=== PATIENT | female | born 1995 | race Two or more races ===

== ENCOUNTER 2024-12-10 14:29 | Outpatient (AMB) | payer MEDICAID, SELFPAY ==
--- NOTE | 2024-12-10 14:35 | AMB.OBINITIA ---
Vital Signs 12/10/24 14:36 Height 1.57 m Height Method Stated Weight 94.971 kg Weight Measurement Method Standing Scale BMI 38.2 BP 113/74 Blood Pressure Source Automatic Cuff Blood Pressure Location Right Upper Arm Position Sitting Respiration 18 Pulse 98 Pulse Source Monitor Temp 97.3 F Temp Source Temporal Artery Scan Pulse Oximetry (%) 98 Oxygen Delivery Method Room Air Allergies/Home Meds Allergies & Medications Allergies NKA* Allergy (Uncoded 12/10/24 14:40) Medication Reconciliation vit,calcium 128-iron fum 28 mg iron-folic acid 800 mcg tablet 1 tab PO QDAY 08/07/21 [History Confirmed 12/10/24] Intake Visit Data Collection New Patient or Established: Established Patient (seen at [facility] within 3 years) Reason for Visit:: OBI Seen by Clinical Staff ONLY (RN/MA): No Underwriting Service Representative Required: No Do You Feel Safe at Home: Yes Authorities Contacted: N/A PCP or OBGYN visit in last 3 months: Yes Hx Now: Yes Are you currently on any form of Control: No Pain Present Currently: No Pain Scale Used: Gibbs-Bey/Numerical Pain scale:: 0 Smoking Status Smoking Status: Never smoker Immunizations Flu Vaccine in the Last 12 Months: No Flu Vaccine Exclusion Criteria: No Exclusion Criteria Questionnaires Covid-19 Vaccine Questionnaire Has patient been vacinated for Covid-19 Have you been vacinated for Covid-19: No PHQ-9 PHQ-2 Over the last 2 weeks, how often have you been bothered by any of the following problems? 1. Little interest or pleasure in doing things: not at all 2. Feeling down, depressed, or hopeless: not at all Total score: 0 PHQ-9 3. Trouble falling or staying asleep, or sleeping too much: Not at all 4. Feeling tired or having little energy: Not at all 5. Poor appetite or overeating: Not at all 6. Feeling bad about yourself - or that you are a failure or have let yourself or your family down: Not at all 7. Trouble concentrating on things, such as reading the newspaper or watching television: Not at all 8. Moving or speaking so slowly that other people could have noticed? - Or the opposite - being so fidgety or restless that you have been moving around a lot more than usual: not at all 9. Thoughts that you would be better off or of hurting yourself in some way: Not at all Total score: 0 If you checked off any problems, how difficult have these problems made it for you to do your work, take care of things at home, or get along with other people?: not difficult at all Source: Developed by Drs. Levi Moran, Mitra Cardenas, Gerson Mcghee and colleagues, with an educational tresa from [employer]. Depression screen completed yes Social History Living Situation History Marital Status: Lives With: Family Housing: House Tobacco History Smoking Status: Never smoker Second Hand Smoke Exposure: No Alcohol History Alcohol Intake: Never Domestic Abuse History Do You Feel Safe at Home: Yes OB Initial Visit OB Flowsheet OB Flowsheet Initial Weight: Not Recorded Date <del>?</del> EGA Weight BP Alb Glu CTX Pres Fundal ht FHR Mov Dilation Station Effacement Hx Notes Visit Note 12/10/24 <del>?</del> 23w 2d 94.971 kg 113/74 24 142 active Menstrual History Menstrual reliability: unknown Flow: normal Menstrual regularity: regular Monthly: Yes Age at menarche: 14 On control pills at conception: No OB History : 2 Para: 1 # of Living Children: 1 Delivery History 1st : Child's name: GUI MEDINA date: 08/10/21 sex: male Gestational age at delivery (weeks): 39 Delivery type: weight (lbs): 4082.331 g History of depression before or after : No Infection History & Risk Evaluation History of STDs: none Patient or partner has history of Genital Herpes: No Genetic Screening & History Genetic Screening/Teratology Counseling - Includes patient, baby's father, or anyone in either family with: 1. Patient's age 35 years or older as of estimated date of delivery: No 2. Thalassemia (Swedish, Filipino, Mediterranean, or Background); MCV less than 80: No 3. Neural Tube Defect (Meningomyelocele, Spina Bifida, or Anencephaly): No 4. Congenital Heart Defect: No 5. Down Syndrome: No 6. Mnig-Sachs (Ashkenazi Scientology, C[place]un, [place]): No 7. Richy Disease (Ashkenazi Scientology): No 8. Familial Dysautonomia (Ashkenazi Scientology): No 9. Sickle Cell Disease or Trait (): No 10. Hemophilia or other blood disorders: No 11. Muscular Dystrophy: No 12. Cystic Fibrosis: No 13. Micaela's Chorea: No 14. Mental Retardation/Autism: No 15. Other inherited genetic or chromosomal disorder: No 16. Maternal Metabolic Disorder (EG,TYPE 1 Diabetes, PKU): No 17. Patient or baby's father had a child with defects not listed above: No 18. Recurrent loss or a stillbirth: No 19. Medications (including supplements, vitamins, herbs or otc drugs)/illicit/recreational drugs/alcohol since last menstrual period: No 20. Any other: No Infection History 1. Live with someone with TB or exposed to TB: No Other (see comments) Source: [employer] Office Procedures OBC Clinic LOC & Office Proc's Nursing/Assessment Patient Status: Established Patient OB Clinic Nursing Assessment: Medication Reconciliation, Update PMH in EMR and Vital Signs OB Clinic Coordination of Care: Complex Care and Chronic Disease 1-5, Education Complex Pt/Fam, Consent,records obtained, informed consent, Lab and Imaging orders, Results/Orders obtained and Staff clarify orders Special Needs: Heart tones Established Patient Charge Established Patient Point Assignment: 140 Established Patient Point Charge: EP Level 4 (120-155) Assessment & Plan Diagnosis / Problem List (1) : Status: Acute Qualifiers: Weeks of gestation: 24 weeks Qualified Code(s): Z3A.24 - 24 weeks gestation of (2) Previous section: Status: Acute Plan 29 years old with previous c section and also 24 weeks and with borderline cervical length has MFM follow up for cervical length in 1 week plan one hour GTT, RPR, CBC request ob labs from [facility] [address] and also request anatomy scan reports / done on 10/12/[address] Bartholomew Also Us done MFM on 11/11/2024 is c/w 21.5 weeks and cervical length of 2.53 cm
[2024-12-10 14:36] VITALS: BP 113/74; PULSE 98; RESP 18; TEMP 36.3; O2SAT 98; BMI 38.2
== END 2024-12-10 15:32 | disposition home or self-care (01) ==
LOC: HODSOBC 14:29
PROVIDERS: Supervising Provider Obstetrics & Gynecology; Visit Provider Obstetrics & Gynecology
DX: O09.292 Supervision of pregnancy with other poor reproductive or obstetric history, second trimester (principal); O34.219 Maternal care for unspecified type scar from previous cesarean delivery; Z3A.24 24 weeks gestation of pregnancy
CPT/HCPCS: 99214; G0463

== ENCOUNTER 2025-01-10 15:20 | Outpatient (AMB) | payer MEDICAID, SELFPAY ==
[2025-01-10 15:32] VITALS: BP 123/77; PULSE 99; RESP 18; TEMP 36.8; O2SAT 97; BMI 39.9
--- NOTE | 2025-01-10 15:32 | OBCLNT_ITS ---
Vital Signs 01/10/25 15:32 Height 1.57 m Height Method Stated Weight 98.543 kg Weight Measurement Method Standing Scale BMI 39.9 BP 123/77 Blood Pressure Source Automatic Cuff Blood Pressure Location Left Upper Arm Position Sitting Respiration 18 Pulse 99 Pulse Source Monitor Temp 98.2 F Temp Source Oral Pulse Oximetry (%) 97 Oxygen Delivery Method Room Air Allergies/Home Meds Allergies & Medications Allergies NKA* Allergy (Uncoded 01/10/25 15:33) Medication Reconciliation vit,calcium 128-iron fum 28 mg iron-folic acid 800 mcg tablet 1 tab PO QDAY 08/07/21 [History Confirmed 01/10/25] Immunizations Immunizations Flu Vaccine in the Last 12 Months: No Flu Vaccine Exclusion Criteria: No Exclusion Criteria Care OB Visit Log OB Flowsheet Initial Weight: Not Recorded Date -?-?-?-?-?-?-?-?-?-?-?-?- EGA Weight BP Alb Glu CTX Pres Fundal ht FHR Mov Dilation Station Effacement Hx Notes Visit Note 12/10/24 -?-?-?-?-?-?-?-?-?-?-?-?- 23w 2d 94.971 kg 113/74 24 142 active 01/10/25 -?-?-?-?-?-?-?-?-?-?-?-?- 27w 5d 98.543 kg 123/77 occasional 28 160 active Patient reports good movement no contractions she does feel occasional pressure. No vaginal bleeding She has a follow -up with the maternal- medicine doctors [facility] Calculator Estimated Delivery Date Method Current WG Current Estimate 04/06/25 Ultrasound #1 27w 5d Other Estimates 03/28/25 LMP (Certain) 29w 0d 04/07/25 Ultrasound #2 27w 4d Expected Delivery Route/Plan -0-0-1 Previous of a 9 pound 8 ounce baby for macrosomia. For repeat . Declines tubal ligation. Any lingering Specific Issue/Plans labs: NIPT negative\SMA negative\CF negative\AFP negative\hemoglobin A1c 5.3\1 hour glucose elevated at 151. 3-hour glucose ordered. Notes Visit Date: 01/10/25 Last Updated by: Demetria Galloway (OB Clinic)MD Patient works in the [employer] and lifts and bends all day. She states she has to come home from work and rest for at least an hour secondary to cramping. The maternal- medicine specialist are following her for a short cervix and she is on progesterone vaginally. The plan will be to take the patient off work on disability at this time. A note was given and she did drop disability papers off. She failed her 1 hour at 151 and we will do a 3-hour glucose and this was ordered today. Visit Date: 12/10/24 Last Updated by: Natividad Chávez MD 29 years old at 24.4 weeks based on LMP Previous c section/ was ? GBS positive last needs labs report from [facility] / denies any problems this she had an anatomy scan and needs that report too/ was told she has a short cervix follow up in 4 weeks order i hour GTT and RPR and CBC Office Procedures OBC Clinic LOC & Office Proc's Nursing/Assessment Patient Status: Established Patient OB Clinic Nursing Assessment: Medication Reconciliation, Update PMH in EMR and Vital Signs OB Clinic Coordination of Care: Consent,records obtained, informed consent, Education Simp Pt/Fam, Lab and Imaging orders, Results/Orders obtained and Staff clarify orders Special Needs: Heart tones Established Patient Charge Established Patient Point Assignment: 110 Established Patient Point Charge: EP Level 3 (80-115) Assessment & Plan Diagnosis / Problem List (1) Previous section: Status: Acute Assessment and Plan: For repeat at 39 weeks. Patient works in the [employer] and lifts and bends. Off work 01/10/2025. On modified bedrest and pelvic rest. Following her for a short cervix with the maternal- medicine specialist. Continue vaginal progesterone. (2) Obesity (BMI 30-39.9): Status: Acute Assessment and Plan: Discussed weight gain and exercise. Additional Plan Follow Up: 4 Weeks
== END 2025-01-10 16:19 | disposition home or self-care (01) ==
PROVIDERS: Supervising Provider Obstetrics & Gynecology; Visit Provider Obstetrics & Gynecology
DX: O09.292 Supervision of pregnancy with other poor reproductive or obstetric history, second trimester (principal); O34.219 Maternal care for unspecified type scar from previous cesarean delivery; O09.892 Supervision of other high risk pregnancies, second trimester; Z3A.27 27 weeks gestation of pregnancy; O99.212 Obesity complicating pregnancy, second trimester
CPT/HCPCS: 99213; G0463

== ENCOUNTER 2025-02-09 14:53 | Outpatient (AMB) | payer MEDICAID, SELFPAY ==
--- NOTE | 2025-02-09 15:13 | OBCLNT_ITS ---
Vital Signs 02/09/25 15:14 02/09/25 15:37 Height 1.57 m Height Method Stated Weight 94.461 kg Weight Measurement Method Standing Scale BMI 38.3 BP 115/76 115/76 Blood Pressure Source Automatic Cuff Blood Pressure Location Left Upper Arm Position Sitting Respiration 18 18 Pulse 102 H 20 L Pulse Source Monitor Temp 97.8 F 97.8 F Temp Source Oral Pulse Oximetry (%) 97 97 Oxygen Delivery Method Room Air Allergies/Home Meds Allergies & Medications Allergies NKA* Allergy (Uncoded 02/09/25 15:14) Medication Reconciliation vit,calcium 128-iron fum 28 mg iron-folic acid 800 mcg tablet 1 tab PO QDAY 08/07/21 [History Confirmed 02/09/25] blood sugar diagnostic (Blood Glucose Test strips) #10 ea 02/09/25 [Rx] blood-glucose meter #1 ea 02/09/25 [Rx] lancets #100 ea 02/09/25 [Rx] Immunizations Immunizations Flu Vaccine in the Last 12 Months: No Flu Vaccine Exclusion Criteria: Refused by Patient Care OB Visit Log OB Flowsheet Initial Weight: Not Recorded Date -?-?-?-?-?-?-?-?-?-?-?-?- EGA Weight BP Alb Glu CTX Pres Fundal ht FHR Mov Dilation Station Effacement Hx Notes Visit Note 12/10/24 -?-?-?-?-?-?-?-?-?-?-?-?- 23w 2d 94.971 kg 113/74 24 142 active 01/10/25 -?-?-?-?-?-?-?-?-?-?-?-?- 27w 5d 98.543 kg 123/77 occasional 28 160 active Patient reports good movement no contractions she does feel occasional pressure. No vaginal bleeding She has a follow -up with the maternal- medicine doctors 02/09/25 -?-?-?-?-?-?-?-?-?-?-?-?- 32w 0d 94.461 kg 115/76 115/76 occasional 33 155 active [employer] Calculator Estimated Delivery Date Method Current WG Current Estimate 04/06/25 Ultrasound #1 32w 5d Other Estimates 03/28/25 LMP (Certain) 34w 0d 04/07/25 Ultrasound #2 32w 4d Expected Delivery Route/Plan -0-0-1 Previous of a 9 pound 8 ounce baby for macrosomia. For repeat . Declines tubal ligation. Any lingering Specific Issue/Plans labs: NIPT negative\SMA negative\CF negative\AFP negative\hemoglobin A1 c 5.3\1 hour glucose elevated at 151. 3-hour glucose ordered. Notes Visit Date: 02/09/25 Last Updated by: Natividad Chávez MD / previous c section/ Last baby > 9 lbs and one hour GTT cw GDM 1 hour is 204 and fasting is 102 / done 01/18/2025 / Plan diet / glucose monitoring and follow up in 2 weeks Visit Date: 01/10/25 Last Updated by: Demetria Galloway (OB Clinic)MD Patient works in the [employer] and lifts and bends all day. She states she has to come home from work and rest for at least an hour secondary to cramping. The maternal- medicine specialist are following her for a short cervix and she is on progesterone vaginally. The plan will be to take the patient off work on disability at this time. A note was given and she did drop disability papers off. She failed her 1 hour at 151 and we will do a 3-hour glucose and this was ordered today. Visit Date: 12/10/24 Last Updated by: Natividad Chávez MD 29 years old at 24.4 weeks based on LMP Previous c section/ was ? GBS positive last needs labs report from [facility] / denies any problems this she had an anatomy scan and needs that report too/ was told she has a short cervix follow up in 4 weeks order i hour GTT and RPR and CBC Office Procedures OBC Clinic LOC & Office Proc's Nursing/Assessment Patient Status: Established Patient OB Clinic Nursing Assessment: Medication Reconciliation, Update PMH in EMR and Vital Signs OB Clinic Coordination of Care: Complex Care and Chronic Disease 1-5, Consent,records obtained, informed consent, Education Simp Pt/Fam, 1 Ins Authorization, Lab and Imaging orders, Results/Orders obtained and Staff clarify orders Special Needs: Heart tones Established Patient Charge Established Patient Point Assignment: 150 Established Patient Point Charge: EP Level 4 (120-155) Assessment & Plan Diagnosis / Problem List (1) GDM, class A1: Status: Acute (2) Obesity (BMI 30-39.9): Status: Acute (3) Previous section: Status: Acute (4) : Status: Acute Qualifiers: Weeks of gestation: 24 weeks Qualified Code(s): Z3A.24 - 24 weeks gestation of Assessment and Plan: 32 weeks Additional Plan / previous c section/ Last baby > 9 lbs and one hour GTT cw GDM 1 hour is 204 and fasting is 102 / done 01/18/2025 / Plan diet / glucose monitoring and follow up in 2 weeks Follow Up: 2 Weeks
[2025-02-09 15:14] VITALS: BP 115/76; PULSE 102; RESP 18; TEMP 36.6; O2SAT 97; BMI 38.3
--- NOTE | 2025-02-09 15:32 | OBCLNT_ITS ---
Vital Signs 02/09/25 15:14 02/09/25 15:37 Height 1.57 m Height Method Stated Weight 94.461 kg Weight Measurement Method Standing Scale BMI 38.3 BP 115/76 115/76 Blood Pressure Source Automatic Cuff Blood Pressure Location Left Upper Arm Position Sitting Respiration 18 18 Pulse 102 H 20 L Pulse Source Monitor Temp 97.8 F 97.8 F Temp Source Oral Pulse Oximetry (%) 97 97 Oxygen Delivery Method Room Air Allergies/Home Meds Allergies & Medications Allergies NKA* Allergy (Uncoded 02/09/25 15:14) Medication Reconciliation vit,calcium 128-iron fum 28 mg iron-folic acid 800 mcg tablet 1 tab PO QDAY 08/07/21 [History Confirmed 02/09/25] blood sugar diagnostic (Blood Glucose Test strips) #10 ea 02/09/25 [Rx] blood-glucose meter #1 ea 02/09/25 [Rx] lancets #100 ea 02/09/25 [Rx] Care OB Visit Log OB Flowsheet Initial Weight: Not Recorded Date -?-?-?-?-?-?-?-?-?-?-?-?- EGA Weight BP Alb Glu CTX Pres Fundal ht FHR Mov Dilation Station Effacement Hx Notes Visit Note 12/10/24 -?-?-?-?-?-?-?-?-?-?-?-?- 23w 2d 94.971 kg 113/74 24 142 active 01/10/25 -?-?-?-?-?-?-?-?-?-?-?-?- 27w 5d 98.543 kg 123/77 occasional 28 160 active Patient reports good movement no contractions she does feel occasional pressure. No vaginal bleeding She has a follow -up with the maternal- medicine doctors 02/09/25 -?-?-?-?-?-?-?-?-?-?-?-?- 32w 0d 94.461 kg 115/76 115/76 occasional 33 155 active [facility] Calculator Estimated Delivery Date Method Current WG Current Estimate 04/06/25 Ultrasound #1 32w 0d Other Estimates 03/28/25 LMP (Certain) 33w 2d 04/07/25 Ultrasound #2 31w 6d Expected Delivery Route/Plan -0-0-1 Previous of a 9 pound 8 ounce baby for macrosomia. For repeat . Declines tubal ligation. Any lingering Specific Issue/Plans labs: NIPT negative\SMA negative\CF negative\AFP negative\hemoglobin A1c 5.3\1 hour glucose elevated at 151. 3-hour glucose ordered. Notes Visit Date: 02/09/25 Last Updated by: Natividad Chávez MD / previous c section/ Last baby > 9 lbs and one hour GTT cw GDM 1 hour is 204 and fasting is 102 / done 01/18/2025 / Plan diet / glucose monitoring and follow up in 2 weeks Visit Date: 01/10/25 Last Updated by: Demetria Galloway (OB Clinic)MD Patient works in the [employer] and lifts and bends all day. She states she has to come home from work and rest for at least an hour secondary to cramping. The maternal- medicine specialist are following her for a short cervix and she is on progesterone vaginally. The plan will be to take the patient off work on disability at this time. A note was given and she did drop disability papers off. She failed her 1 hour at 151 and we will do a 3-hour glucose and this was ordered today. Visit Date: 12/10/24 Last Updated by: Natividad Chávez MD 29 years old at 24.4 weeks based on LMP Previous c section/ was ? GBS positive last needs labs report from [facility] / denies any problems this she had an anatomy scan and needs that report too/ was told she has a short cervix follow up in 4 weeks order i hour GTT and RPR and CBC Office Procedures OBC Clinic LOC & Office Proc's Nursing/Assessment Patient Status: Established Patient OB Clinic Nursing Assessment: Medication Reconciliation, Update PMH in EMR and Vital Signs OB Clinic Coordination of Care: Complex Care and Chronic Disease 1-5, Consent, records obtained, informed consent, Education Simp Pt/Fam, 1 Ins Authorization, Lab and Imaging orders, Results/Orders obtained and Staff clarify orders Special Needs: Heart tones Established Patient Charge Established Patient Point Assignment: 150 Established Patient Point Charge: EP Level 4 (120-155) Assessment & Plan Diagnosis / Problem List (1) Obesity (BMI 30-39.9): Status: Acute (2) Previous section: Status: Acute (3) GDM, class A1: Status: Acute Assessment and Plan: / previous c section/ Last baby > 9 lbs and one hour GTT cw GDM 1 hour is 204 and fasting is 102 / done 01/18/2025 / Plan diet / glucose monitoring and follow up in 2 weeks
[2025-02-09 15:37] VITALS: BP 115/76; PULSE 20; RESP 18; TEMP 36.6; O2SAT 97
== END 2025-02-09 15:43 | disposition home or self-care (01) ==
LOC: HODSOBC 14:53
PROVIDERS: Supervising Provider Obstetrics & Gynecology; Visit Provider Obstetrics & Gynecology
DX: O09.293 Supervision of pregnancy with other poor reproductive or obstetric history, third trimester (principal); O34.219 Maternal care for unspecified type scar from previous cesarean delivery; O09.893 Supervision of other high risk pregnancies, third trimester; O24.410 Gestational diabetes mellitus in pregnancy, diet controlled; O99.213 Obesity complicating pregnancy, third trimester; Z3A.32 32 weeks gestation of pregnancy; Z28.21 Immunization not carried out because of patient refusal
CPT/HCPCS: 99214; G0463